=== PATIENT | male | born 1990 | race Caucasian/White ===

== ENCOUNTER 2016-10-20 15:01 | Emergency (ER) | payer SELFPAY ==
[~2016-10-20] VITALS: Ht 180.3 cm; Wt 75.0 kg
[~2016-10-20 15:01] MED LIST: ALBU8I INH; ZITH250T PO
[2016-10-20 15:03] VITALS: BP 115/78; PULSE 118; RESP 14; TEMP 98.4; O2SAT 96
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
[2016-10-20] MEDS ORDERED: BACT800T5 PO (16:40)
[2016-10-20 16:50] VITALS: PULSE 96; RESP 18; O2SAT 100
== END 2016-10-20 17:52 | disposition home or self-care (01) ==
LOC: NEPC 15:01
DX: J40 Bronchitis, not specified as acute or chronic (principal); F17.210 Nicotine dependence, cigarettes, uncomplicated; Z59.0 Homelessness
CPT/HCPCS: 99282